=== PATIENT | female | born 1960 | race Caucasian/White ===

== ENCOUNTER 2018-10-02 13:35 | Observation (INO) | payer OTHER ==
[2018-10-02] MEDS ORDERED: SODIUM CHLORIDE 1,000 ML IV STA ×2 (13:40→14:39)
[2018-10-02] MEDS ORDERED: ONDANSETRON 4 MG/2 ML VIAL IVPUSH ONE (13:40)
[2018-10-02] MEDS ORDERED: ACETAMINOPHEN 1000 MG/100 ML VIAL (NON FORMULARY) IVPB ONE (13:40)
--- NOTE | 2018-10-02 13:55 | PDOC ---
History of Present Illness - General Chief Complaint: Pain Stated Complaint: RT SIDED FLANK/ BACK PAIN Time Seen by Provider: 10/02/18 13:38 - History of Present Illness Initial Comments: 10/02/18 13:41 Ms. Guajardo is a 58 yo female w/ pmh of HTN and HLD who presents for evaluation of 1 day history of nausea and vomiting. Patient reports symptoms started yesterday and have been accompanied by colicky right flank and RLQ pain which has migrated along her abdomen. Patient also believes she had some fever and experienced chills last night. Endorses some difficulty urinating despite drinking plenty of fluids. The patient denies chest pain, shortness of breath, headache and dizziness. Denies diarrhea and constipation. Past History - Past Medical History Allergies/Adverse Reactions: Allergies Allergy/AdvReac Type Severity Reaction Status Date / Time No Known Allergies Allergy Verified 10/02/18 13:37 Home Medications: Ambulatory Orders Lisinopril 10 mg PO DAILY 10/02/18 Review of Systems - Review of Systems Comments:: 10/02/18 14:02 GENERAL/CONSTITUTIONAL: +Subjective fevers and chills x1 day. No weakness. HEAD, EYES, EARS, NOSE AND THROAT: No change in vision. No ear pain or discharge. No sore throat. CARDIOVASCULAR: No chest pain or shortness of breath RESPIRATORY: No cough, wheezing, or hemoptysis. GASTROINTESTINAL: +N/V/D as described GENITOURINARY: +Urinary changes as described. MUSCULOSKELETAL: No joint or muscle swelling or pain. No neck or back pain. SKIN: No rash NEUROLOGIC: No headache, vertigo, loss of consciousness, or change in strength/ sensation. ENDOCRINE: No increased thirst. No abnormal weight change HEMATOLOGIC/LYMPHATIC: No anemia, easy bleeding, or history of blood clots. ALLERGIC/IMMUNOLOGIC: No hives or skin allergy. *Physical Exam - Physical Exam Comments: 10/02/18 14:02 GENERAL: Awake, alert, and fully oriented, in no acute distress HEAD: No signs of trauma, normocephalic, atraumatic EYES: PERRLA, EOMI, sclera anicteric, conjunctiva clear ENT: Auricles normal inspection, hearing grossly normal, nares patent, oropharynx clear without exudates. Moist mucosa NECK: Normal ROM, supple, no lymphadenopathy, JVD, or masses LUNGS: No distress, speaks full sentences, clear to auscultation bilaterally HEART: Regular rate and rhythm, normal S1 and S2, no murmurs, rubs or gallops, peripheral pulses normal and equal bilaterally. ABDOMEN: +Right flank and RLQ TTP. Normoactive bowel sounds. No guarding, no rebound. No masses EXTREMITIES: Normal inspection, Normal range of motion, no edema. No clubbing or cyanosis. NEUROLOGICAL: Cranial nerves II through XII grossly intact. Normal speech, normal gait, no focal sensorimotor deficits SKIN: Warm, Dry, normal turgor, no rashes or lesions noted. ED Treatment Course - LABORATORY CBC & Chemistry Diagram: 10/02/18 14:00 10/02/18 14:00 Medical Decision Making - Medical Decision Making 10/02/18 13:56 Ms. guajardo is a 58 yo female w/ pmh as described who presents for evaluation of symptoms concerning for nephrolithiasis vs. pyelonephritis vs. appendicitis. Patient evaluated on presentation with bedside US which revealed R sided hydronephritis consistent with kidney stone. Workup started accordingly with CBC /CMP/UA/Urine Cx/blood cultures/lactate/CT Spiral. Zofran, 1L NS, IV tylenol ordered for symptomatic relief. (Patient requested tylenol over morphine at this time). 10/02/18 15:54 Patient noted to have 8mm stone. Will admit patient for urology follow-up and further pain control as needed. Discussed with patient who agrees with this plan. Laboratory evaluation c/w history as below. Mildly elevated WBC to 12.0, urine positive for 1+ Leukocytes. 10/02/18 16:09 Discussed patient with urology who will evaluate - suggested rocephin for prophylaxis. Will comply. Admitting patient. Laboratory Results - last 24 hr 10/02/18 10/02/18 10/02/18 14:00 14:00 14:00 WBC 12.0 H RBC 4.63 Hgb 13.4 Hct 40.1 MCV 86.5 MCH 29.0 MCHC 33.6 RDW 11.9 Plt Count 273 MPV 8.5 Absolute Neuts (auto) 10.3 Neutrophils % 85.1 H Lymphocytes % 5.8 L Monocytes % 7.9 Eosinophils % 0.0 Basophils % 1.2 Sodium 130 L Potassium 4.1 Chloride 100 Carbon Dioxide 25 Anion Gap 5 L BUN 24 H Creatinine 1.4 H Creat Clearance w eGFR 38.62 Random Glucose 113 H Lactic Acid Calcium 9.0 Total Bilirubin 1.2 H AST 33 ALT 20 Alkaline Phosphatase 57 Total Protein 6.3 L Albumin 3.8 Urine Color Shirlene Urine Appearance Clear Urine pH 6.0 Ur Specific [place] 1.015 Urine Protein Negative Urine Glucose (UA) Negative Urine Ketones Negative Urine Blood 1+ H Urine Nitrite Negative Urine Bilirubin Negative Urine Urobilinogen 0.2 Ur Leukocyte Esterase 1+ H Urine RBC 10-20 Urine WBC 5-10 Ur Epithelial Cells Few Urine Bacteria Few 10/02/18 14:00 WBC RBC Hgb Hct MCV MCH MCHC RDW Plt Count MPV Absolute Neuts (auto) Neutrophils % Lymphocytes % Monocytes % Eosinophils % Basophils % Sodium Potassium Chloride Carbon Dioxide Anion Gap BUN Creatinine Creat Clearance w eGFR Random Glucose Lactic Acid 1.4 Calcium Total Bilirubin AST ALT Alkaline Phosphatase Total Protein Albumin Urine Color Urine Appearance Urine pH Ur Specific [place] Urine Protein Urine Glucose (UA) Urine Ketones Urine Blood Urine Nitrite Urine Bilirubin Urine Urobilinogen Ur Leukocyte Esterase Urine RBC Urine WBC Ur Epithelial Cells Urine Bacteria *DC/Admit/Observation/Transfer Diagnosis at time of Disposition: Ureterolithiasis - Discharge Dispostion Condition at time of disposition: Stable Decision to Admit order: Yes - Referrals Referrals: Andrés Edwards MD [Staff Physician] - - Patient Instructions - Post Discharge Activity
[2018-10-02] MEDS ORDERED: ACETAMINOPHEN INJECTION 100 ML IVPB ONE (14:00)
[2018-10-02] MEDS ORDERED: ONDANSETRON 4 MG/2 ML VIAL ONE (14:00)
--- NOTE | 2018-10-02 14:08 | PDOC ---
Attending Attestation - Resident Resident Name: Rodrigo Kidd - ED Attending Attestation I have performed the following: I have examined & evaluated the patient, The case was reviewed & discussed with the resident, I agree w/resident's findings & plan, Exceptions are as noted - HPI HPI: 10/02/18 14:04 58 yo F no pmhx here with c/o rght sided flank nelson and right lower abd pain. started yesterday. intermittent. dull achy, radiating to front. did have associated n/v x several episodes. felt chills yesterday. no f/ no urinary complaints. no diarrhea. no constipation. no known h/o kidney stones. . no mod factors. - Physicial Exam PE: 10/02/18 14:05 awake alert lungs clear bilaterally heart rrr no mrg abd soft rlq ttp. right mid quad ttp. right cva ttp. no rebound no guarding. ext wwp no edema. no calf tenderness. - Medical Decision Making 10/02/18 14:05 differential renal colic, infectd stones, appendictis, cholelithiasis, pyelo. plan focused ED us abd renal, labs ua pain control antiemetics. focused ED renal us performed. indication right flank pain. right kidney with moderate hydroneprhosis. left kidney unremarkable. bladder nondistended, empty as just voided. impression: moderate right sided hydronephrosis. will obtain ct eval stone as first time, and concerns for coexisting infection. ct a/p pending.
[2018-10-02 14:15] LABS: RBC 4.63 M/mm3 (3.60-5.2); RDW 11.9 % (11.6-15.6); URINE APPEARANCE Clear; URINE BILIRUBIN Negative (NEGATIVE); URINE COLOR Amber; URINE GLUCOSE (UA) Negative (NEGATIVE); URINE KETONE Negative (NEGATIVE); URINE LEUK ESTERASE 1+ (NEGATIVE); URINE NITRITE Negative (NEGATIVE); URINE PROTEIN Negative (NEGATIVE); URINE UROBILINOGEN 0.2 (0.2-1.0)
[2018-10-02 14:19] LABS: BASO % 1.2 % (0-2.0); HEMATOCRIT 40.1 % (32.4-45.2); HEMOGLOBIN 13.4 GM/dl (10.7-15.3); LYMPH % 5.8 % (8-40); MCHC 33.6 g/dl (32.0-36.0); MEAN CELL VOLUME 86.5 fl (80-96); MEAN PLT VOLUME 8.5 fl (7.5-11.1); MONO % 7.9 % (3.8-10.2); NEUT % 85.1 % (42.8-82.8); PLATELET COUNT 273 K/MM3 (134-434)
[2018-10-02 14:27] LABS: ALBUMIN 3.8 g/dl (3.4-5.0); ALK PHOS 57 U/L (45-117); ANION GAP 5 MMOL/L (8-16); BILIRUBIN,TOTAL 1.2 mg/dl (0.2-1); BLOOD UREA NITROGEN 24 mg/dl (7-18); CHLORIDE 100 mmol/L (98-107); CO2 25 mmol/L (21-32); CREATININE 1.4 mg/dl (0.55-1.3); EPI CELLS FEW /HPF; GLUCOSE,RANDOM 113 mg/dl (74-106); POTASSIUM 4.1 mmol/L (3.5-5.1); SGOT/AST 33 U/L (15-37); SGPT/ALT 20 U/L (13-61); SODIUM 130 mmol/L (136-145); TOT PROT 6.3 g/dl (6.4-8.2); URINE BACTERIA FEW /hpf (NEGATIVE)
[2018-10-02] MEDS ORDERED: CEFTRIAXONE 1,000 MG in DEXTROSE 5%-WATER - 50 ML IVPB ONE (16:06)
[2018-10-02] MEDS ORDERED: cefTRIAXone SODIUM 1 GM VIAL ONE (16:13)
--- NOTE | 2018-10-02 16:13 | HP ---
CHIEF COMPLAINT: right flanl pain PCP:Dr. January Mckeon ([facility]) HISTORY OF PRESENT ILLNESS: Nick Guajardo is a 58 yr old F, medical condition HTN, HLD presented to ED with Right low back pain, radiating to abd, started yesterday with nausea, vomiting, felt chills yesterday, ER course was notable for: (1)UA +1 (2) CT abd 8mm ureteral calculus (3)nausea,vomiting, Recent Travel: PAST MEDICAL HISTORY:HTN, HLD PAST SURGICAL HISTORY: Social History: Smoking:denies Alcohol:denies Drugs: denies Family History: Allergies No Known Allergies Allergy (Verified 10/02/18 13:37) HOME MEDICATIONS: Home Medications Medication Instructions Recorded Lisinopril 10 mg PO DAILY 10/02/18 REVIEW OF SYSTEMS CONSTITUTIONAL: Absent: fever, chills, diaphoresis, generalized weakness, malaise, loss of appetite, weight change HEENT: Absent: rhinorrhea, nasal congestion, throat pain, throat swelling, difficulty swallowing, mouth swelling, ear pain, eye pain, visual changes CARDIOVASCULAR: Absent: chest pain, syncope, palpitations, irregular heart rate, lightheadedness , peripheral edema RESPIRATORY: Absent: cough, shortness of breath, dyspnea with exertion, orthopnea, wheezing, stridor, hemoptysis GASTROINTESTINAL:+nausea, vomiting, Right flank pain Absent: abdominal pain, abdominal distension, diarrhea, constipation, melena, hematochezia GENITOURINARY: Absent: dysuria, frequency, urgency, hesitancy, hematuria, flank pain, genital pain MUSCULOSKELETAL: Absent: myalgia, arthralgia, joint swelling, back pain, neck pain SKIN: Absent: rash, itching, pallor HEMATOLOGIC/IMMUNOLOGIC: Absent: easy bleeding, easy bruising, lymphadenopathy, frequent infections ENDOCRINE: Absent: unexplained weight gain, unexplained weight loss, heat intolerance, cold intolerance NEUROLOGIC: Absent: headache, focal weakness or paresthesias, dizziness, unsteady gait, seizure, mental status changes, bladder or bowel incontinence PSYCHIATRIC: Absent: anxiety, depression, suicidal or homicidal ideation, hallucinations. PHYSICAL EXAMINATION Vital Signs - 24 hr 10/02/18 13:35 Temperature 98 F Pulse Rate 82 Respiratory 18 Rate Blood Pressure 137/88 O2 Sat by Pulse 100 Oximetry (%) GENERAL: Awake, alert, and fully oriented, in no acute distress. HEAD: Normal with no signs of trauma. EYES: Pupils equal, round and reactive to light, extraocular movements intact, sclera anicteric, conjunctiva clear. No lid lag. EARS, NOSE, THROAT: Ears normal, nares patent, oropharynx clear without exudates. Moist mucous membranes. NECK: Normal range of motion, supple without lymphadenopathy, JVD, or masses. LUNGS: Breath sounds equal, clear to auscultation bilaterally. No wheezes, and no crackles. No accessory muscle use. HEART: Regular rate and rhythm, normal S1 and S2 without murmur, rub or gallop. ABDOMEN: Soft, nontender, not distended, normoactive bowel sounds, no guarding, no rebound, no masses. No hepatomegaly or splenomegaly. MUSCULOSKELETAL: Normal range of motion at all joints. No bony deformities or tenderness. No CVA tenderness. UPPER EXTREMITIES: 2+ pulses, warm, well-perfused. No cyanosis. No clubbing. No peripheral edema. LOWER EXTREMITIES: 2+ pulses, warm, well-perfused. No calf tenderness. No peripheral edema. NEUROLOGICAL: Cranial nerves II-XII intact. Normal speech. Normal gait. PSYCHIATRIC: Cooperative. Good eye contact. Appropriate mood and affect. SKIN: Warm, dry, normal turgor, no rashes or lesions noted, normal capillary refill. Laboratory Results - last 24 hr 10/02/18 10/02/18 10/02/18 14:00 14:00 14:00 WBC 12.0 H RBC 4.63 Hgb 13.4 Hct 40.1 MCV 86.5 MCH 29.0 MCHC 33.6 RDW 11.9 Plt Count 273 MPV 8.5 Absolute Neuts (auto) 10.3 Neutrophils % 85.1 H Lymphocytes % 5.8 L Monocytes % 7.9 Eosinophils % 0.0 Basophils % 1.2 Sodium 130 L Potassium 4.1 Chloride 100 Carbon Dioxide 25 Anion Gap 5 L BUN 24 H Creatinine 1.4 H Creat Clearance w eGFR 38.62 Random Glucose 113 H Lactic Acid Calcium 9.0 Total Bilirubin 1.2 H AST 33 ALT 20 Alkaline Phosphatase 57 Total Protein 6.3 L Albumin 3.8 Urine Color Shirlene Urine Appearance Clear Urine pH 6.0 Ur Specific [place] 1.015 Urine Protein Negative Urine Glucose (UA) Negative Urine Ketones Negative Urine Blood 1+ H Urine Nitrite Negative Urine Bilirubin Negative Urine Urobilinogen 0.2 Ur Leukocyte Esterase 1+ H Urine RBC 10-20 Urine WBC 5-10 Ur Epithelial Cells Few Urine Bacteria Few 10/02/18 14:00 WBC RBC Hgb Hct MCV MCH MCHC RDW Plt Count MPV Absolute Neuts (auto) Neutrophils % Lymphocytes % Monocytes % Eosinophils % Basophils % Sodium Potassium Chloride Carbon Dioxide Anion Gap BUN Creatinine Creat Clearance w eGFR Random Glucose Lactic Acid 1.4 Calcium Total Bilirubin AST ALT Alkaline Phosphatase Total Protein Albumin Urine Color Urine Appearance Urine pH Ur Specific [place] Urine Protein Urine Glucose (UA) Urine Ketones Urine Blood Urine Nitrite Urine Bilirubin Urine Urobilinogen Ur Leukocyte Esterase Urine RBC Urine WBC Ur Epithelial Cells Urine Bacteria ASSESSMENT/PLAN: Jesus Guajardo is a 58 yr old F, medical condition HTN, HLD, admitted under observation for Admitting Diagnosis Nephrolithiasis Chronic Problems HTN HLD A/P #Nephrolithiasis -IVF -pain mgt -Clear liquid diet if tolerating -antiemetics -Urology consult placed in ED -blood, urine cx pending -UA +Leuk, started on rocephin #HTN #HLD -on lisinopril -not on statin, diet controlled Full Code Dispo: requires inpatient treatment DVT prophylaxis Heparin SQ Visit type - Emergency Visit Emergency Visit: Yes Care time: The patient presented to the Emergency Department on the above date and was hospitalized for further evaluation of their emergent condition. - New Patient This patient is new to me today: Yes Date on this admission: 10/02/18 - Critical Care Critical Care patient: No
[2018-10-02] MEDS ORDERED: ONDANSETRON 4 MG/2 ML VIAL IVPUSH PRN (16:23)
[2018-10-02] MEDS ORDERED: SODIUM CHLORIDE 0.9% 1000 ML INFUS.BAG IV SCH (16:30)
[2018-10-02] MEDS ORDERED: SODIUM CHLORIDE 1,000 ML IV SCH (16:45)
[2018-10-02 17:25] VITALS: BMI 20.9
[2018-10-02] MEDS: KETOROLAC TROMETHAMINE 15 MG/ML VIAL IVPUSH PRN (17:31)
[2018-10-02 19:57] LABS: ANION GAP 3 MMOL/L (8-16); BLOOD UREA NITROGEN 20 mg/dl (7-18); CALCIUM 8.2 mg/dl (8.5-10); CHLORIDE 103 mmol/L (98-107); CO2 23 mmol/L (21-32); CREATININE 1.3 mg/dl (0.55-1.3); GLUCOSE,RANDOM 125 mg/dl (74-106); POTASSIUM 4.2 mmol/L (3.5-5.1); SODIUM 129 mmol/L (136-145)
[2018-10-02] MEDS: HEPARIN NA (PORCINE) 5,000 UNITS/ML 1ML VIAL SQ SCH (21:24)
[2018-10-03] MEDS: KETOROLAC TROMETHAMINE 15 MG/ML VIAL IVPUSH PRN (03:53)
[2018-10-03 06:33] VITALS: TEMP 98.8
[2018-10-03] MEDS ORDERED: TAMSULOSIN HCL 0.4 MG CAP PO SCH (09:00)
[2018-10-03] MEDS: HEPARIN NA (PORCINE) 5,000 UNITS/ML 1ML VIAL SQ SCH (09:31)
[2018-10-03 09:38] VITALS: BP 113/68; PULSE 77
[2018-10-03] MEDS ORDERED: CEFTRIAXONE 1 G/50 ML PREMIX 50 ML IVPB SCH (10:00)
[2018-10-03] MEDS ORDERED: LISINOPRIL 10 MG TABLET (FP) PO SCH (10:00)
[2018-10-03 10:05] LABS: HEMATOCRIT 36.6 % (32.4-45.2); HEMOGLOBIN 12.4 GM/dl (10.7-15.3); MCHC 33.8 g/dl (32.0-36.0); MEAN CELL VOLUME 88.8 fl (80-96); PLATELET COUNT 222 K/MM3 (134-434); RBC 4.12 M/mm3 (3.60-5.2); WHITE BLOOD COUNT 9.6 K/mm3 (4.0-10.8)
[2018-10-03 10:30] LABS: ALBUMIN 3.4 g/dl (3.4-5.0); ALK PHOS 55 U/L (45-117); ANION GAP 9 MMOL/L (8-16); BLOOD UREA NITROGEN 16 mg/dl (7-18); CALCIUM 8.6 mg/dl (8.5-10); CHLORIDE 102 mmol/L (98-107); CO2 23 mmol/L (21-32); CREATININE 1.3 mg/dl (0.55-1.3); GLUCOSE,RANDOM 76 mg/dl (74-106); MAGNESIUM 1.8 mg/dL (1.8-2.4); POTASSIUM 4.1 mmol/L (3.5-5.1); SGOT/AST 29 U/L (15-37); SGPT/ALT 20 U/L (13-61); SODIUM 134 mmol/L (136-145); TOT PROT 5.6 g/dl (6.4-8.2)
--- NOTE | 2018-10-03 11:10 | DS ---
Physical Exam: SUBJECTIVE: Patient seen and examined, pt denies n/v, pain, tolerated GI soft diet, discussed with , pt can be discharged, will dc with flomax, toradol, macrobid , pt to make appt with her PCP and see Urology OBJECTIVE: Vital Signs Period Temp Pulse Resp BP Sys/Iverson Pulse Ox Last 24 Hr 97.9 F-98.8 F 71-87 16-18 113-142/68-88 96-100 PHYSICAL EXAM GENERAL: The patient is awake, alert, and fully oriented, in no acute distress. HEAD: Normal with no signs of trauma. EYES: PERRL, extraocular movements intact, sclera anicteric, conjunctiva clear. ENT: Ears normal, nares patent, oropharynx clear without exudates, moist mucous membranes. NECK: Trachea midline, full range of motion, supple. LUNGS: Breath sounds equal, clear to auscultation bilaterally, no wheezes, no crackles, no accessory muscle use. HEART: Regular rate and rhythm, S1, S2 without murmur, rub or gallop. ABDOMEN: Soft, nontender, nondistended, normoactive bowel sounds, no guarding, no rebound, no hepatosplenomegaly, no masses. EXTREMITIES: 2+ pulses, warm, well-perfused, no edema. NEUROLOGICAL: Cranial nerves II through XII grossly intact. Normal speech, gait not observed. PSYCH: Normal mood, normal affect. SKIN: Warm, dry, normal turgor, no rashes or lesions noted. LABS Laboratory Results - last 24 hr 10/02/18 10/02/18 10/02/18 14:00 14:00 14:00 WBC 12.0 H RBC 4.63 Hgb 13.4 Hct 40.1 MCV 86.5 MCH 29.0 MCHC 33.6 RDW 11.9 Plt Count 273 MPV 8.5 Absolute Neuts (auto) 10.3 Neutrophils % 85.1 H Lymphocytes % 5.8 L Monocytes % 7.9 Eosinophils % 0.0 Basophils % 1.2 Sodium 130 L Potassium 4.1 Chloride 100 Carbon Dioxide 25 Anion Gap 5 L BUN 24 H Creatinine 1.4 H Creat Clearance w eGFR 38.62 Random Glucose 113 H Lactic Acid Calcium 9.0 Magnesium Total Bilirubin 1.2 H AST 33 ALT 20 Alkaline Phosphatase 57 Total Protein 6.3 L Albumin 3.8 Urine Color Shirlene Urine Appearance Clear Urine pH 6.0 Ur Specific [place] 1.015 Urine Protein Negative Urine Glucose (UA) Negative Urine Ketones Negative Urine Blood 1+ H Urine Nitrite Negative Urine Bilirubin Negative Urine Urobilinogen 0.2 Ur Leukocyte Esterase 1+ H Urine RBC 10-20 Urine WBC 5-10 Ur Epithelial Cells Few Urine Bacteria Few Urine Osmolality Ur Random Sodium 10/02/18 10/02/18 10/02/18 14:00 19:10 22:55 WBC RBC Hgb Hct MCV MCH MCHC RDW Plt Count MPV Absolute Neuts (auto) Neutrophils % Lymphocytes % Monocytes % Eosinophils % Basophils % Sodium 129 L Potassium 4.2 Chloride 103 Carbon Dioxide 23 Anion Gap 3 L BUN 20 H Creatinine 1.3 Creat Clearance w eGFR 42.07 Random Glucose 125 H Lactic Acid 1.4 Calcium 8.2 L Magnesium Total Bilirubin AST ALT Alkaline Phosphatase Total Protein Albumin Urine Color Urine Appearance Urine pH Ur Specific [place] Urine Protein Urine Glucose (UA) Urine Ketones Urine Blood Urine Nitrite Urine Bilirubin Urine Urobilinogen Ur Leukocyte Esterase Urine RBC Urine WBC Ur Epithelial Cells Urine Bacteria Urine Osmolality Ur Random Sodium < 40 L 10/02/18 10/03/18 10/03/18 22:55 08:00 08:00 WBC 9.6 RBC 4.12 Hgb 12.4 Hct 36.6 MCV 88.8 MCH 30.0 MCHC 33.8 RDW 12.0 Plt Count 222 MPV 9.0 Absolute Neuts (auto) Neutrophils % Lymphocytes % Monocytes % Eosinophils % Basophils % Sodium 134 L Potassium 4.1 Chloride 102 Carbon Dioxide 23 Anion Gap 9 BUN 16 Creatinine 1.3 Creat Clearance w eGFR 42.07 Random Glucose 76 Lactic Acid Calcium 8.6 Magnesium 1.8 Total Bilirubin 1.0 AST 29 ALT 20 Alkaline Phosphatase 55 Total Protein 5.6 L Albumin 3.4 Urine Color Urine Appearance Urine pH Ur Specific [place] Urine Protein Urine Glucose (UA) Urine Ketones Urine Blood Urine Nitrite Urine Bilirubin Urine Urobilinogen Ur Leukocyte Esterase Urine RBC Urine WBC Ur Epithelial Cells Urine Bacteria Urine Osmolality 104 L Ur Random Sodium HOSPITAL COURSE: Date of Admission:10/02/18 Date of Discharge: 10/03/18 Jesus Guajardo is a 58 yr old F, medical condition HTN, HLD, admitted under observation for Admitting Diagnosis Nephrolithiasis Chronic Problems HTN HLD A/P #Nephrolithiasis-improved -n/v resolved -denies pain -tolerating soft diet -discussed with , can dc with flomax, toradol po, abt -pt afebrile, no growth in urine cx #HTN #HLD -on lisinopril -not on statin, diet controlled Minutes to complete discharge: 30 Discharge Summary Reason For Visit: CALCULUS OF URETER - Instructions Diet, Activity, Other Instructions: please pear picker medication from pharmacy and complete as prescribed. Follow up with PCP, Urology in 1 week if you develop fever, worsening pain, vomiting please go to nearest ER. Referrals: Andrés Edwards MD [Staff Physician] - Disposition: HOME - Home Medications Comprehensive Discharge Medication List: Ambulatory Orders Lisinopril 10 mg PO DAILY 10/02/18 Ketorolac Tromethamine [Toradol -] 10 mg PO Q6HPO PRN 7 Days #28 tablet Nitrofurantoin Monohyd/M-Cryst [Macrobid -] 100 mg PO BID 7 Days #14 capsule 11/16 Tamsulosin HCl [Flomax -] 0.4 mg PO DAILY 14 Days #14 cap.er.24h 10/03/18 This patient is new to me today: No Emergency Visit: Yes ED Registration Date: 10/02/18 Care time: The patient presented to the Emergency Department on the above date and was hospitalized for further evaluation of their emergent condition. Critical Care patient: No - Discharge Referral Referred to [facility] Med P.[facility].: No
[2018-10-03 11:50] LABS: OSMOLALITY,SERUM 286 mosm/kg (278-305)
[2018-10-03] MEDS ORDERED: KETOROLAC TROMETHAMINE 10 MG TABLET PO SCH (12:00)
--- NOTE | 2018-10-03 15:43 | EKG ---
Test Reason : Blood Pressure : / mmHG Vent. Rate : 078 BPM Atrial Rate : 078 BPM P-R Int : 156 ms QRS Dur : 094 ms QT Int : 386 ms P-R-T Axes : 077 004 045 degrees QTc Int : 440 ms NORMAL SINUS RHYTHM NORMAL ECG NO PREVIOUS ECGS AVAILABLE Confirmed by MADYSON MENON MD ([id number]) on 10/03/2018 3:43:00 PM Referred By: DECLAN LAGUNA Confirmed By:MADYSON MENON MD
== END 2018-10-03 11:41 | disposition home or self-care (01) ==
LOC: FER 13:35 → FM/S 16:08
PROVIDERS: ATTEND Nurse Practitioner Family
PROC: 3E03329 Introduction of Other Anti-infective into Peripheral Vein, Percutaneous Approach (ICD-10-PCS; principal; 2018-10-02)
PROC: 3E0333Z Introduction of Anti-inflammatory into Peripheral Vein, Percutaneous Approach (ICD-10-PCS; 2018-10-02)
PROC: 3E033NZ Introduction of Analgesics, Hypnotics, Sedatives into Peripheral Vein, Percutaneous Approach (ICD-10-PCS; 2018-10-02)
PROC: 3E0337Z Introduction of Electrolytic and Water Balance Substance into Peripheral Vein, Percutaneous Approach (ICD-10-PCS; 2018-10-02)
PROC: 3E033GC Introduction of Other Therapeutic Substance into Peripheral Vein, Percutaneous Approach (ICD-10-PCS; 2018-10-02)
DX: N20.1 Calculus of ureter (principal); N20.0 Calculus of kidney; I10 Essential (primary) hypertension; E78.5 Hyperlipidemia, unspecified
CPT/HCPCS: 36415; 74176; 80048; 80053; 81003; 81015; 83605; 83735; 83930; 83935; 84300; 85025; 85027; 87040; 87086; 93005; 96361; 96365; 96375; 99285-25; G0378; J0131; J7030